=== PATIENT | female | born 1970 | race African-American/Black ===

== ENCOUNTER 2017-09-22 11:31 | Emergency (ER) | payer MEDICAID ==
[~2017-09-22] VITALS: Ht 160 cm; Wt 85.0 kg
[2017-09-22 11:38] VITALS: BP 162/87
== END 2017-09-22 12:19 | disposition home or self-care (01) ==
LOC: ER 11:31
DX: R21 Rash and other nonspecific skin eruption (principal); F17.200 Nicotine dependence, unspecified, uncomplicated; F12.10 Cannabis abuse, uncomplicated
CPT/HCPCS: 99282

== ENCOUNTER 2018-01-19 22:06 | Emergency (ER) | payer MEDICAID ==
[~2018-01-19] VITALS: Ht 160 cm; Wt 86.0 kg
[2018-01-19] MEDS ORDERED: ONDANSETRON HCL 4MG/2ML VIAL IV STA (23:05)
[2018-01-19] MEDS ORDERED: KETOROLAC 30MG/ML VIAL IV STA (23:05)
[2018-01-19 23:33] LABS: BASOPHILS % 0.7 % (0.0-2.0); CHLORIDE 109 mEq/L (98-107); EOSINOPHILS % 0.6 % (0.0-5.0); HEMATOCRIT. 36.8 % (36.0-48.0); HEMOGLOBIN. 12.2 g/dL (12.0-16.0); LYMPHOCYTES % 31.1 % (20.0-50.0); MEAN CORPUSCULAR HEMOGLOBIN 30.9 pg (28.0-32.0); MEAN CORPUSCULAR VOLUME 92.9 fL (81.0-99.0); MEAN PLATELET VOLUME 9.1 fl (7.4-10.4); MONOCYTES % 7.1 % (2.0-8.0); NEUTROPHILS % 60.5 % (40.0-76.0); PLATELET 190 x1000/uL (130-400); RED BLOOD CELL COUNT 3.96 mill/uL (4.2-5.4); RED CELL DISTRIBUTION WIDTH 15.3 % (11.6-14.6)
[2018-01-20 01:21] VITALS: BP 109/72
== END 2018-01-20 01:24 | disposition home or self-care (01) ==
LOC: ER 22:11
DX: R09.1 Pleurisy (principal); F12.10 Cannabis abuse, uncomplicated; Z87.891 Personal history of nicotine dependence; Z98.51 Tubal ligation status; Z90.710 Acquired absence of both cervix and uterus; Z98.890 Other specified postprocedural states
CPT/HCPCS: 36415; 71045; 80048; 84484; 85025; 85379; 93005; 96374; 96375; 99285; J1885; J2405; Z7610

== ENCOUNTER 2018-08-07 11:19 | Emergency (ER) | payer MEDICAID ==
[~2018-08-07] VITALS: Ht 160 cm; Wt 86.0 kg
[2018-08-07 11:33] VITALS: BP 159/89
== END 2018-08-07 15:59 | disposition home or self-care (01) ==
LOC: ER 12:51
DX: K04.7 Periapical abscess without sinus (principal); F32.9 Major depressive disorder, single episode, unspecified; F17.200 Nicotine dependence, unspecified, uncomplicated; R51 Headache; F12.10 Cannabis abuse, uncomplicated; Z90.710 Acquired absence of both cervix and uterus; Z98.51 Tubal ligation status
CPT/HCPCS: 99283

== ENCOUNTER 2019-02-03 19:26 | Emergency (ER) | payer MEDICAID ==
[~2019-02-03] VITALS: Ht 162.6 cm; Wt 84.0 kg
[2019-02-03 19:40] VITALS: BP 129/77
== END 2019-02-03 21:36 | disposition home or self-care (01) ==
LOC: ER 19:26
DX: L30.1 Dyshidrosis [pompholyx] (principal); L03.116 Cellulitis of left lower limb; L03.115 Cellulitis of right lower limb; F17.200 Nicotine dependence, unspecified, uncomplicated; F12.10 Cannabis abuse, uncomplicated; Z90.710 Acquired absence of both cervix and uterus; Z98.51 Tubal ligation status; Z98.890 Other specified postprocedural states
CPT/HCPCS: 99283

== ENCOUNTER 2022-03-23 17:28 | Emergency (ER) | payer MEDICAID ==
[~2022-03-23] VITALS: Ht 167.6 cm; Wt 68.0 kg
[2022-03-23 17:37] VITALS: BP 127/62
[2022-03-23] MEDS ORDERED: HYDROCODONE/ACETAMINOPHEN 5/325MG TABLET PO ONE (18:00)
[2022-03-23] MEDS ORDERED: HYDR-4001 MT (19:06)
[2022-03-23] MEDS ORDERED: MELO-105 MT (19:06)
== END 2022-03-23 19:19 | disposition home or self-care (01) ==
LOC: ER 17:28
DX: S80.02XA Contusion of left knee, initial encounter (principal); S70.01XA Contusion of right hip, initial encounter; R51.9 Headache, unspecified; W01.198A Fall on same level from slipping, tripping and stumbling with subsequent striking against other object, initial encounter; Y93.89 Activity, other specified; Y92.521 Bus station as the place of occurrence of the external cause
CPT/HCPCS: 73502; 73560; 99284